=== PATIENT | male | born 1960 | race Caucasian/White ===

== ENCOUNTER → 2022-03-10 02:27 | Outpatient (CLI) | payer OTHER, SELFPAY ==
--- NOTE | 2022-03-10 07:53 | DI.MRI_ITS ---
Exam(s) MR ORBIT FACIAL NECK WO/W EXAM: MR ORBIT FACIAL NECK WO/W CLINICAL HISTORY: F/U Lymphadenopathy ON US,SUBMENTAL,R59.0 TECHNIQUE: Multiplanar multisequence MRI was performed. CONTRAST MATERIAL: IV Contrast: 15 mL of Magnevist contrast administered. COMPARISON: US US SOFT TISSUE HEAD OR NECK from 02/14/2022 FINDINGS: Parotid and thyroid gland: Normal. There is soft tissue measuring 2.3 x 60.6 cm superficial to the r ight masseter muscle anterior to the main parotid gland. It is isointense to the parotid gland. Thi s is most consistent with an accessory parotid gland. Submandibular glands: Adjacent to and compressing the right submandibular gland there is a 2.3 transv erse by 2.3 AP by 2.5 craniocaudad well-circumscribed mass. It is deep to the right sternocleidomast oid muscle. There are 2 smaller adjacent lesions. The largest measures 1.3 cm. They show mild gabriella pheral enhancement. There appear to be separate from the submandibular gland. There are 2 smaller s imilar lesions adjacent to the left submandibular gland. The largest is located superior and lateral to the submandibular gland and measures 9 mm. No other lesions are seen in the neck. Lymphadenopathy: Please see the above section under submandibular glands. Carotids/Jugular: Within normal limits. Soft tissues: The floor the mouth is unremarkable. The epiglottis and vocal cords are within normal limits. Images through both lung apices are unremarkable. Bones: Within normal limits for the patient's age. Visualized paranasal sinuses: Clear IMPRESSION: 1. Well-circumscribed lesions seen in the right submandibular region. The largest measures 2.5 cm. It appears to be separate from but compressing the right submandibular gland. The finding is nonspec ific. This may represent adenopathy. Ultrasound-guided biopsy may be considered for further evaluat ion. 2. 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 DATA REPOSITORY:
[2022-03-10 13:59] LABS: Anion Gap 8.4 mmol/L (3-11); BUN 22 mg/dL (7-18); CO2 29.6 mmol/L (21.0-32.0); Chloride 100 mmol/L (98-107); Glucose 95 mg/dL (74-106); Sodium 138 mmol/L (136-145)
== END ==
PROVIDERS: PCP Family Medicine; Visit Provider Family Medicine
DX: K11.8 Other diseases of salivary glands (principal)
CPT/HCPCS: 80048; 70543

== ENCOUNTER 2022-03-12 11:58 | Outpatient (REF) | payer OTHER, SELFPAY ==
--- NOTE | 2022-03-12 11:30 | PAPNONF_PTH ---
PATIENT: Mack Arredondo LOC: [facility] U#:[id number] AGE/SX: 61/M ROOM: RE03/12/[address]: Elias Talamantes MD : 1960 BED: DIS: 03/12/2022 SPEC #: [id number] RECD: 03/12/22 18:25 STATUS: SEKOU REAmaya #: [id number] AVINASH: 03/12/22 11:[address]: Elias Talamantes DEPT: [facility] Cytology RECD BY: Radha Gaitan ENTERED: 03/12/22 18:25 SP TYPE: DELMIS RAMÍREZ DR: Alexander Ordoñez DO Tissues: 1 - BODY FLUID CYTO-FINE NEEDLE ASPIRATE-[facility] Procedures: BODY FLUID CYTO-FINE NEEDLE ASPIRATE-[facility] Comments: [id number]
== END 2022-03-12 11:59 | disposition home or self-care (01) ==
LOC: LBN 11:58
PROVIDERS: PCP Family Medicine; Visit Provider Otolaryngology
DX: R59.1 Generalized enlarged lymph nodes (principal)
CPT/HCPCS: 88104

== ENCOUNTER 2023-01-22 13:20 | Outpatient (REF) | payer OTHER, SELFPAY ==
--- NOTE | 2023-01-22 12:40 | PAPNONF_PTH ---
PATIENT: Mack Arredondo LOC: [facility] U#:[id number] AGE/SX: 62/M ROOM: RE01/22/[address]: Elias Talamantes MD : 1960 BED: DIS: 01/22/2023 SPEC #: [id number] RECD: 01/22/23 16:43 STATUS: SEKOU REAmaya #: [id number] AVINASH: 01/22/23 12:[address]: Elias Talamantes DEPT: [facility] Cytology RECD BY: Rozina Tesfaye ENTERED: 01/22/23 16:46 SP TYPE: DELMIS RAMÍREZ DR: Alexander Ordoñez DO Tissues: 1 - BODY FLUID CYTO-FINE NEEDLE ASPIRATE-[facility] Procedures: BODY FLUID CYTO-FINE NEEDLE ASPIRATE-[facility] Comments: (REFRIGERATED)
== END 2023-01-22 13:21 | disposition home or self-care (01) ==
LOC: LBN 13:20
PROVIDERS: PCP Family Medicine; Visit Provider Otolaryngology
DX: R22.1 Localized swelling, mass and lump, neck (principal); R59.0 Localized enlarged lymph nodes; R89.6 Abnormal cytological findings in specimens from other organs, systems and tissues
CPT/HCPCS: 88104

== ENCOUNTER 2023-01-24 16:19 | Emergency (ER) | payer OTHER, SELFPAY ==
[2023-01-24 16:35] VITALS: BP 156/92; PULSE 57; RESP 18; TEMP 36.6; O2SAT 99
--- NOTE | 2023-01-24 16:48 | W.ED.GENAD ---
Discharge Plan Disposition Patient Disposition: Home Discharge Details Clinical Impression: Submental lymphadenopathy Primary Care Provider: Alexander Ordoñez ED Provider: John Suarez Home Meds and New Rx's Prescriptions: No Action thiamine HCl (vitamin B1) 100 mg tablet 100 mg PO DAILY B-complex with vitamin C Tablet 1 tab PO DAILY Viitamin D 1 tab PO DAILY Trace Minerals 1 tab PO aspirin 81 mg tablet,delayed release (DR/EC) 81 mg PO DAILY Qty: 90 3RF amoxicillin-pot clavulanate 875-125 mg tablet 1 tab PO BID Qty: 20 0RF losartan 100 mg tablet 100 mg PO DAILY Qty: 90 3RF Discharge Instructions Additional Instructions: Please continue taking the antibiotics. If you develop any fevers or chills or increased pain please return to the emergency department. You may take some Tylenol for the pain. Please follow-up with your ENT specialist on Thursday. Medical Decision Making 62-year-old gentleman presents to the emergency room for increased size of mass on the right side of his jaw. White count within normal limits. Chemistry is normal. CT scan with IV contrast obtained. The CT scan reveals a 2.5 cm fluid density focus at the right submandibular level with slightly thickened wall. When compared to the MRI that was done a few months ago there is a increasing size. There are also some mild to moderate adjacent adenopathies. The case was discussed with the patient's ENT specialist, Dr Talamantes. Different diagnosis includes an abscess. Dr. Talamantes's recommendation was for needle I&D in the emergency department, versus transfer to [facility] for ENT consult and I&D or if the patient does not want an IV to be seen in the office on Thursday for further evaluation but he continue taking the antibiotics. After reviewing all the options with the patient and his , they decided to wait till Thursday to see if the antibiotics were kick in. There is no airway compromise. Clinical impression fluid collection measuring 2.5 cm in diameter with mild thickening wall to the right submandibular level. HPI General Date/Time Provider Initiated Documentation: 01/24/23 16:45. HPI Narrative: 62-year-old gentleman presents to the emergency room for evaluation of right submandibular mass. He is currently being followed by the ENT T service symptoms over the course of the past few several months he has had recurrent growth of a mass in the submandibular area. Last time he had swelling in that area, his ENT provider did an FNA. Findings of the FNA were consistent with a lymphadenopathy. He was seen last because of recurrent symptoms. At the time another FNA was scheduled. He is scheduled for surgery on the for resection of gland. He was started on antibiotics, Augmentin he has taken the third dose, and was told that if he had any fevers or increase in the size of the mass that he should come to the emergency department. He is not having pain with swallowing and feels tension in the right side of his neck. No change in his voice. No shortness of breath. No shortness of breath. No weight gain or weight loss. Related Data Home Medications Medication Instructions Recorded Confirmed B-complex with vitamin C 1 tab PO DAILY 01/20/22 01/24/23 Trace Minerals 1 tab PO 01/20/22 01/22/23 Viitamin D 1 tab PO DAILY 01/20/22 01/22/23 thiamine HCl (vitamin B1) 100 mg 100 mg PO DAILY 01/20/22 01/24/23 tablet losartan 100 mg tablet 100 mg PO DAILY #90 tabs 04/21/22 01/24/23 aspirin 81 mg tablet,delayed 81 mg PO DAILY #90 tabs 08/14/22 01/24/23 release amoxicillin 875 mg-potassium 1 tab PO BID #20 tabs 01/22/23 01/24/23 clavulanate 125 mg tablet Previous Rx's Medication Instructions Recorded losartan 100 mg tablet 100 mg PO DAILY #90 tabs 04/21/22 aspirin 81 mg tablet,delayed 81 mg PO DAILY #90 tabs 08/14/22 release amoxicillin 875 mg-potassium 1 tab PO BID #20 tabs 01/22/23 clavulanate 125 mg tablet Allergies Allergy/AdvReac Type Severity Reaction Status Date / Time lovastatin AdvReac Intermediate Verified 01/24/23 17:20 General Stated Complaint: Nk/Back Pain AGUSTIN: 3 Review of Systems Narrative: 10 point review of system negative unless otherwise specified in the HPI PFSH All Active Problems Lymphadenopathy of head and neck (Acute) 03/12/[address] Talamantes Trigger thumb, right thumb (Acute) Thumb locking (Acute) Contact dermatitis (Acute) Submental lymphadenopathy (Acute) Former tobacco use (Acute) Medical History Borderline hypertension Esophageal dilatation Hyperlipidemia Vitamin D deficiency Surgical History History of esophagogastroduodenoscopy (EGD) Family History Mother Alcohol use disorder Social History Smoking/Tobacco Use Status: Never Second Hand Exposure: No Smoking risk assessment performed?: Yes Alcohol Intake: current Alcohol Intake frequency: 3 or more drinks per day Alcohol type: wine Drug use: Never Substance use type: does not use Adopted: No Caregiver/Support person: No Foster care: No Household members: spouse Housing: house Number of Children: 3 number of grandchildren: 2 Communication Needs: None Education Level: vocational Do you need help understanding health information?: Rarely current occupation: Retired - track fitter/steam pipe fitter Pets and animals: Yes Pets and animals: dog(s) Sexually active: Yes Do you think of yourself as: straight/heterosexual Current gender identity: male What is your relationship status?: How often do you talk on the phone with friends or family?: three or more times per week How often do you get together with friends or relatives?: once per week Do you belong to any clubs or organized social groups?: no Panel score (0-1 are the most socially isolated patients): 2 What type of physical activity do you participate in: walking and weight lifting Duration: 30-45 minutes/day Frequency: daily Tea/Roman Catholic: [employer] Special tae needs: No Seatbelt use: always Helmet use: Yes Helmet use: always Drive intox or ride w/intox motor coach bus driver: No Working smoke detector in home: Yes Fire extinguisher in home: Yes Carbon monox detector in home: Yes Do you feel safe at home: Yes Do you feel safe in your relationship?: Yes Victim of physical abuse: No Victim of emotional abuse: No Exam Narrative Exam Narrative: General: A,A Ox3, Calm, no apparent distress, well developed, pleasant and cooperative Head Size/Shape: normocephalic, atraumatic Eyes Pupils: PERRLA Extraocular Mobility: intact and symmetrical Conjunctiva: non-injected, anicteric, no discharge Ears, Nose, Throat Nares: patent bilaterally Oral Cavity: moist Neck: n large right submental Mass. Respiratory Respiratory Effort: no dyspnea Auscultation: clear to auscultation bilaterally, normal breath sounds, no wheezing, no rales/crackles Cardiovascular Heart Auscultation: regular rate and rhythm, normal S1, normal S2, no murmurs, no rubs, no gallops, Musculoskeletal System Joints, Bones, and Muscles: no deformities Extremities: warm and well-perfused, no cyanosis, capillary refill <2 seconds Skin Skin Inspection: no rash, no lesions, no bruising Neurological Motor: normal tone, normal strength, moving all extremities equally Psychiatric: good insight, good judgement, normal mood and affect Course Vital Signs Vital signs: Vital Signs Temperature 36.6 C 01/24/23 16:35 Pulse 57 L 01/24/23 16:35 Respiratory Rate 18 01/24/23 16:35 Blood Pressure 156/92 H 01/24/23 16:35 Pulse Oximetry 99 01/24/23 16:35 Temperature 36.6 C 01/24/23 16:35 Pulse 57 L 01/24/23 16:35 Respiratory Rate 18 01/24/23 16:35 Respiratory Effort Normal, Non-Labored 01/24/23 16:39 Blood Pressure 156/92 H 01/24/23 16:35 Blood Pressure Position Sitting 01/24/23 16:35 Pulse Oximetry 99 01/24/23 16:35 Oxygen Delivery Method Room Air 01/24/23 16:35 Oxygen Flow Rate 0 01/24/23 16:35 Pain Level 0 01/24/23 16:35
--- NOTE | 2023-01-24 16:52 | DI.CT_ITS ---
Exam(s) CT NECK W EXAM: CT NECK W CLINICAL HISTORY: mass. TECHNIQUE: Imaging Protocol: Axial computed tomography images with coronal and sagittal reformatted images were created and reviewed CONTRAST MATERIAL: Intravenous: Omnipaque 350 Contrast volume:100 ml contrast COMPARISON: MR MR ORBIT FACIAL NECK WO/W from 03/10/2022 FINDINGS: Parotids: Mild enlargement of the right parotid gland. Submandibular/thyroid gland: Normal. Rounded fluid density mass with wall enhancement measuring 2.5 cm question of mildly increased in siz e compared to prior MRI. There are adjacent smaller lymph nodes. Carotids: No significant stenosis or dissection.. Soft tissues: The floor the mouth is unremarkable. The epiglottis and vocal cords are within normal limits. Lungs: Images through both lung apices are unremarkable. Bones: Degenerative changes of the cervical spine. Visualized portions of the brain and orbits: Unremarkable. Sinuses and mastoids: Clear. IMPRESSION: Mild interval increase in size of previously noted mass anterior to the right submandibular gland. A djacent mildly enlarged lymph nodes. RADIATION DOSE DELIVERED: 418.89mGy.cm Total DLP DATA REPOSITORY: All CT scans at this facility are submitted to the National Radiology Data Registry (NRDR) Dose Index Registry (DIR) with the [employer] (ACR). RADIATION OPTIMIZATION: All CT scans at this facility use at least one of these dose optimization te chniques: automated exposure control; mA and/or kV adjustment per patient size (includes targeted exa ms where dose is matched to clinical indication); or iterative reconstruction.
[2023-01-24 17:10] LABS: Abs Immature Grans 0.02 10^3/uL (0.0-0.06); Absolute Basophil Count 0.02 10^3/uL (0.0-0.2); Absolute Eosinophil Count 0.16 10^3/uL (0.0-0.7); Absolute Lymphocyte Count 0.98 10^3/uL (1.2-3.4); Absolute Monocyte Count 0.91 10^3/uL (0.1-0.8); Absolute Neutrophil Count 4.94 10^3/uL (1.2-6.7); Basophils % 0.3; Eosinophils % 2.3; HCT 37.9 % (40.0-50.0); HGB 13.2 g/dL (13.5-17.5); Immature Grans % 0.3; Lymphocytes % 13.9; MCH 32.2 pg (27.0-33.0); MCHC 34.8 % (32.0-36.0); MCV 92 fL (80-95); MPV 9.3 fL (8.0-11.0); Monocytes % 12.9; Neutrophils % 70.3; Platelet Count 176 10^3/uL (130-400); RDW 11.6 % (11.8-14.1); RDW-SD 39.8 fL; WBC 7.03 10^3/uL (4.4-10.8)
[2023-01-24] MEDS: AMPICILLIN/SULBACTAM 3 GM in Normal Saline 100 ML IVPB (17:15)
[2023-01-24 17:24] LABS: Anion Gap 5.6 mmol/L (3-11); BUN 16 mg/dL (7-18); CO2 29.4 mmol/L (21.0-32.0); CREATININE 0.8 mg/dL (0.70-1.30); Calcium 9.8 mg/dL (8.5-10.1); Chloride 102 mmol/L (98-107); Estimated GFR 100.06 (mL/min/1.73m2); Glucose 95 mg/dL (74-106); Potassium 4.5 mmol/L (3.5-5.1); Sodium 137 mmol/L (136-145)
[2023-01-24] MEDS: Normal Saline - Diluent 50 ML VIAL IJ (17:42)
[2023-01-24] MEDS: Omnipaque 350 MG/ML 100 ML BTL IJ (17:42)
[2023-01-24] MEDS: Normal Saline Flush 10 ML SYR IVP ×2 (17:43→18:00)
--- NOTE | 2023-01-24 18:13 | DI.VRAD_ITS ---
PROCEDURE INFORMATION: Exam: CT Neck With Contrast Exam date and time: 01/24/2023 5:43 PM Age: 62 years old Clinical indication: Mass, lump, or swelling in neck; Right TECHNIQUE: Imaging protocol: Computed tomography of the neck with contrast. Contrast material: OMNIAPQUE 350; Contrast volume: 100 ml; Contrast route: INTRAVENOUS (IV); COMPARISON: MR ORBIT FACIAL NECK WO/W 03/10/2022 1:37 PM. Report not available. FINDINGS: Pharynx: Unremarkable. No significant tonsillar enlargement. Larynx: Unremarkable. Epiglottis is normal. Prevertebral and retropharyngeal spaces: Unremarkable. Salivary glands: There is some asymmetric enlargement of the right parotid gland. There is a fluid density focus at the right submandibular level with a slightly thickened wall. It measures up to 2.5 cm in diameter. This is increased in size slightly compared to MRI exam. There is local mass effect and mild to moderate adjacent adenopathy. It lies deep to the platysmas muscle. Thyroid: Normal. No enlarged or calcified nodules. Lymph nodes: See Salivary glands finding. Trachea: Visualized trachea is unremarkable. Lungs: Unremarkable as visualized. Bones/joints: Unremarkable. No acute fracture. Soft tissues: Unremarkable. No significant soft tissue swelling. IMPRESSION: Thick-walled fluid density focus at the submandibular level. Differential considerations could include necrotic lymph node, branchial cleft cyst or alternate cystic neoplasm. There is shotty associated adenopathy. Dictated and Authenticated by: Millicent Hdez MD. Ordering:NATHANIEL Lopez MD
[2023-01-24 18:55] VITALS: BP 164/85; PULSE 60; TEMP 36.6; O2SAT 99
== END 2023-01-24 18:54 | disposition home or self-care (01) ==
PROVIDERS: Emergency Provider Emergency Medicine; PCP Family Medicine
DX: R59.1 Generalized enlarged lymph nodes (principal)
CPT/HCPCS: 36415; 70491; 80048; 96365; 99285; 85025; 99284; J0295; J3490

== ENCOUNTER 2023-02-02 08:44 | Day surgery (SDC) | payer OTHER, SELFPAY ==
[2023-02-02] VITALS (8 sets, daily range): BP systolic 96–141; BP diastolic 46–86; PULSE 44–99; RESP 14–18; TEMP 36.3–36.6; O2SAT 97–99; BMI 24.0
--- NOTE | 2023-02-02 09:56 | W.ANESPRE ---
General Info Date of Service Date Performed: 02/02/23 Height: 5 ft 10 in Weight: 76 kg Body Mass Index (BMI): 24.0 Surgical Procedure: Operation Date: 02/02/23 11:10 Proposed Procedure Side Surgeon p Excision of Rt Submandibular Neck Mass Right Elias Talamantes MD Meds Allergies and Home Medications Allergies Allergy/AdvReac Type Severity Reaction Status Date / Time lovastatin AdvReac Intermediate Verified 02/02/23 09:36 Home Medication Medication Instructions Recorded B-complex with vitamin C 1 tab PO DAILY 01/20/22 Trace Minerals 1 tab PO DAILY 01/20/22 Viitamin D 1 tab PO DAILY 01/20/22 thiamine HCl (vitamin B1) 100 mg 100 mg PO DAILY 01/20/22 tablet losartan 100 mg tablet 100 mg PO DAILY #90 tabs 04/21/22 aspirin 81 mg tablet,delayed 81 mg PO DAILY #90 tabs 08/14/22 release amoxicillin 875 mg-potassium 1 tab PO BID #20 tabs 01/22/23 clavulanate 125 mg tablet Current Visit Medications: Current Medications Generic Name Dose Route Start Last Admin Trade Name Freq PRN Reason Stop Dose Admin Ringer's Solution 1,000 mls @ 80 mls/hr 02/02/23 06:00 IV 03/01/23 23:59 INFUSION CHERYLE Cefazolin Sodium/Dextrose 2 gm in 50 mls @ 100 mls/hr 02/02/23 06:00 Ancef Duplex IVPB 02/02/23 16:00 PREOP CHERYLE Tranexamic Acid 1,000 mg/ 60 mls @ 360 mls/hr 02/02/23 06:00 Sodium Chloride IVPB 02/02/23 16:00 PREOP CHERYLE IV Miscellaneous Supplies 1 each 02/02/23 06:00 Iv Access IV 03/01/23 23:59 DIRECTED CHERYLE Sodium Chloride 0 ml 02/02/23 06:00 Normal Saline Flush 10 Ml Syr IV 03/01/23 23:59 PRN PRN Sodium Chloride 0 ml 02/02/23 06:00 Normal Saline 10 Ml Vial IJ 03/01/23 23:59 DIRECTED PRN Sterile Water 0 ml 02/02/23 06:00 Water,Injection,Sterile 10 Ml Vial IJ 03/01/23 23:59 DIRECTED PRN PFSH Active Problems Active Problems: Problem Status Onset Code Former tobacco use Z87.891 Submental lymphadenopathy R59.0 Contact dermatitis L25.9 Thumb locking M24.849 Trigger thumb, right thumb M65.311 Lymphadenopathy of head and neck R59.1 Medical History Medical History Borderline hypertension Esophageal dilatation Hyperlipidemia Vitamin D deficiency Surgical History Surgical History History of esophagogastroduodenoscopy (EGD) Hx of appendectomy Hx of wisdom tooth extraction Tobacco Smoking/Tobacco Use Status: Never Second hand exposure: No Alcohol Alcohol Intake: current Alcohol intake frequency: 3 or more drinks per day Alcohol type: wine Substance Use Substance use: Never Substance use type: does not use Vital Signs and Lab Results Vital Signs Most Recent Vital Signs in EMR: Most Recent Vital Signs Temp Pulse Resp BP Pulse Ox 36.3 C L 62 16 141/86 H 99 02/02/23 09:37 02/02/23 09:37 02/02/23 09:37 02/02/23 09:37 02/02/23 09:37 Lab Results Blood Type / Crossmatch: No Data to Display Complete Blood Count: White Blood Count 7.03 10^3/uL (4.4-10.8) 01/24/23 17:05 Red Blood Count 4.10 10^6/uL (4.36-5.78) L 01/24/23 17:05 Hemoglobin 13.2 g/dL (13.5-17.5) L 01/24/23 17:05 Hematocrit 37.9 % (40.0-50.0) L 01/24/23 17:05 Platelet Count 176 10^3/uL (130-400) 01/24/23 17:05 Complete Metabolic Panel: Sodium 137 mmol/L (136-145) 01/24/23 17:05 Potassium 4.5 mmol/L (3.5-5.1) 01/24/23 17:05 Chloride 102 mmol/L (98-107) 01/24/23 17:05 Carbon Dioxide 29.4 mmol/L (21.0-32.0) 01/24/23 17:05 BUN 16 mg/dL (7-18) 01/24/23 17:05 Creatinine 0.8 mg/dL (0.70-1.30) 01/24/23 17:05 Est GFR (CKD-EPI 2020) 100.06 (mL/min/1.73m2) 01/24/23 17:05 Calcium 9.8 mg/dL (8.5-10.1) 01/24/23 17:05 Glucose 95 mg/dL (74-106) 01/24/23 17:05 Liver Function Panel: No Data to Display Coagulation Panel: No Data to Display Cardiac Panel: No Data to Display Arterial Blood Gas: No Data to Display Venous Blood Gas: No Data to Display Pancreas Panel: No Data to Display Thyroid Panel: No Data to Display Infectious Disease: No Data to Display Blood Cultures: No Data to Display Toxicology Panel: No Data to Display Anesthesia Assessment and Plan Anesthesia History Personal History: No History of Anesthesia Complications Family History: No Family History of Anesthesia Complications Exercise Tolerance Exercise Tolerance: Metabolic Equivalents>4 Pertinent Negatives Pertinent Negatives: No Symptoms of GERD, No Major Cardiovascular Symptoms or Complaints and No Major Pulmonary Symptoms or Complaints Cardiac & Pulmonary Exam Cardiac Exam: Normal S1/S2 Heart Sounds Pulmonary Exam: Clear Bilateral Breath Sounds Implantable Cardiac Device Does patient have a Pacemaker or an ICD?: No Airway Exam Known Difficult Airway: No Mallampati Class: 1 Mouth Opening: Normal (> 3cm) Thyromental Distance: Greater than 3 cm Neck Range of Motion: Full ROM Neck Circumference: Normal Teeth Condition: Normal Dentition ASA Classification ASA Score: ASA 2 Emergency Case?: No NPO Status NPO Status: NPO Clears >2 hours, Solids >8 hours Anesthesia Plan Resuscitation Status: Full Code Anesthesia Technique: General Anesthesia Airway Planned: Endotracheal Tube Monitors Used: Standard Monitors
[2023-02-02] MEDS: Lactated Ringers 1,000 ML 80 ML IV (10:25)
[2023-02-02] MEDS: ceFAZolin 2 GM/50 ML BAG IVPB (10:40)
[2023-02-02] MEDS: Lidocaine 1% Pres-Free W/EPI 1/200,000 10 ML VIAL (10:47)
--- NOTE | 2023-02-02 11:53 | SOFT_PTH ---
PATIENT: Mack Arredondo LOC: [facility] U#:[id number] AGE/SX: 62/M ROOM: RE02/02/[address]: Elias Talamantes MD : 1960 BED: DIS: 02/02/2023 SPEC #: [id number] RECD: 02/02/23 12:57 STATUS: SEKOU REQ #: [id number] AVINASH: 02/02/23 11:[address]: Elias Talamantes DEPT: Surgical Specimen RECD BY: Radha Gaitan ENTERED: 02/02/23 12:59 SP TYPE: SOFT OTHR DR: Alexander Ordoñez DO Tissues: 1 - SOFT TISSUE MISC (INC. LIPOMA) 2 - FLOW CYTOMETRY NODE/TISSUE Procedures: GROSS AND MICRO LEVEL 4 IMMUNOPEROXIDASE STAIN FLOW CYTOMETRY LYMPHOMA PNL SPECIAL STAIN 1 Comments: [id number] (FLOW CYTOMETRY - [id number])
--- NOTE | 2023-02-02 12:16 | PDOC.DSDIS_ITS ---
Date of service: 02/02/23 Time of Service: 12:16 Discharge Plan Disposition Patient Disposition: Home Condition: Good Discharge Details Reason For Visit: right neck I and D with biopsy Attending Provider: Elias Talamantes Primary Care Provider: Alexander Ordoñez Home Meds and New Rx's Prescriptions: No Action thiamine HCl (vitamin B1) 100 mg tablet 100 mg PO DAILY B-complex with vitamin C Tablet 1 tab PO DAILY Viitamin D 1 tab PO DAILY Trace Minerals 1 tab PO DAILY aspirin 81 mg tablet,delayed release (DR/EC) 81 mg PO DAILY Qty: 90 3RF amoxicillin-pot clavulanate 875-125 mg tablet 1 tab PO BID Qty: 20 0RF losartan 100 mg tablet 100 mg PO DAILY Qty: 90 3RF Discharge Instructions Additional Instructions: Remove dressing tomorrow after shower, do not replace. Apply bacitracin 2x per day for 3 days. Start augmentin tonite. Tylenol/and/or ibuprofen for pain control. Call with increasing pain, increasing swelling, or other concerns. My cell phone number is [phone] if there are any concerns or problems. No driving or operating dangerous equipment for 72 hours. No lifting greater than 20 pounds for 5 days. No lifting greater than 50 pounds for 7 days. Referrals: Elias Talamantes MD [ [facility] STAFF PHYSICIAN] - (, 02/05/2023, 12 noon) Discharge Orders Discharge Orders: Discharge Order (Routine); Ordered 02/02/23 Ordered By: Elias Talamantes
--- NOTE | 2023-02-02 12:26 | W.PM.OP ---
Date of service: 02/02/23 Time of Service: 12:26 Operative Note Operative Note DATE OF PROCEDURE: 02/02/23 PRE-OP DIAGNOSIS: Right neck mass POST-OP DIAGNOSIS: same PROCEDURE: Incision and drainage of right submandibular mass with biopsy of capsule, SURGEON: Elias Talamantes [employer] TEAMMATE: Kecia Puente Refer to Anesthesia Record ESTIMATED BLOOD LOSS: 10 PATHOLOGY: other (Portion with specimen sent in formalin and portion sent in RPMI) COMPLICATIONS: None Patient was transported to: PACU Patient's condition: stable Indications: The patient with a right-sided neck mass that FNA indicated contains necrotic debris, but no epithelial cells consistent with a degenerated lymph node. Attempts for needle aspiration were unsuccessful in the office. Findings: Extensive fibrosis extending from the platysma down and around the lesion, will with no distinct plane between the submandibular gland and this mass. This fibrosis extended beyond the edges of the submandibular gland into the surrounding tissues. The cavity within the necrotic mass appears to extend through the submandibular gland into the submental spaces. There is no obvious connection to the mandible. Procedure Description: The patient was positioned in supine position with his head turned to the left after general anesthetic was administered. He was prepped and draped in appropriate fashion. A standard submandibular gland excision incision was designed on the lower edge of the mass, and an attempt to protect the marginal mandibular nerve. Incision was continued down to the level of the platysma sharply. Following this, attempts to raise of platysma off of the underlying mass were made, but the platysma was found to be adherent, and inflamed, and could not be easily from the underlying mass. As such, attempts were made to extend the dissection plane around the outside of the submandibular gland, but the fibrosis extended beyond the submandibular gland in all 4 directions. Because of the findings of necrosis in the middle of the mass, and the fact that there is no clear plane for dissection and we do not have a firm diagnosis as to what is occurring, I opted instead to anterior the necrotic middle of the mass. Cultures were taken. A golf ball size cavity containing pudding consistency wade material without any obvious vascularity was removed revealing an irregular cavity that appeared to extend through the submandibular gland into the submental spaces. This did not appear to cross midline. After removing all the necrotic debris, a biopsy was removed of the wall of the cavity. The specimen was placed in both RPMI for flow cytometry and formalin for permanent section. The wound was then irrigated copiously with saline, and then closed in 2 layers of Monocryl four-point 0 suture in an inverted fashion. The mid portion of the wound was approximated, but left loose in case there is any drainage. Sterile dressing was then applied. The patient was then awakened and extubated by anesthesia and taken to recovery room where he was noted to have good marginal mandibular nerve function. I was present throughout the entire case.
[2023-02-02] MEDS: Ibuprofen 600 MG TAB PO (13:24)
--- NOTE | 2023-02-02 14:41 | W.ANESPOSTOP ---
Postoperative Evaluation Date, Time and Location Date Performed: 02/02/23 Time Performed: 14:42 Patient Location: Day Surgery Unit Vital Signs Most Recent Imported Vital Signs: Most Recent Vital Signs Temp Pulse Resp BP Pulse Ox 36.3 C L 99 H 17 121/83 99 02/02/23 13:21 02/02/23 13:21 02/02/23 13:21 02/02/23 13:21 02/02/23 13:21 Pain Score Most Recent Pain Score: Most Recent Pain Score Pain Level 5 02/02/23 13:21 Assessment Mental Status: Awake (Alert & Oriented to Patient Baseline) Airway and Respiratory Function: Patent airway with normal (patient baseline) respiratory exam Cardiovascular Function: Hemodynamically Stable Hydration Status: Adequately Hydrated Nausea & Vomiting: No Nausea or Vomiting Pain: Pt. Denies Any Pain Peripheral Nerve Block: Patient did not receive a nerve block
== END 2023-02-02 13:50 | disposition home or self-care (01) ==
PROVIDERS: PCP Family Medicine; Visit Provider Otolaryngology
PROC: (CPT 42410; principal; 2023-02-02 11:00)
DX: D11.9 Benign neoplasm of major salivary gland, unspecified; R59.0 Localized enlarged lymph nodes; Z87.891 Personal history of nicotine dependence
CPT/HCPCS: 41017 ×2; 42405; 88305; 87070; 87075; 87205; 88184; 88185; 88304; 88312; 88361; J0690; J1100; J2405; J2704; J3475

== ENCOUNTER 2023-05-20 04:02 | Outpatient (CLI) | payer OTHER, SELFPAY ==
[2023-05-20 11:37] LABS: Calculated LDL 125 mg/dL (<100); Cholesterol 248 mg/dL (<200); HDL Cholesterol 102 mg/dL (40-60); Triglyceride 107 mg/dL (<150)
== END 2023-05-20 04:03 | disposition home or self-care (01) ==
LOC: LBO 04:02
PROVIDERS: PCP Family Medicine; Visit Provider Family Medicine
DX: E78.5 Hyperlipidemia, unspecified (principal)
CPT/HCPCS: 36415; 80061